=== PATIENT | female | born 1990 | race Caucasian/White ===

== ENCOUNTER 2018-02-04 00:29 | Inpatient (IN) | payer OTHER ==
[2018-02-04] MEDS ORDERED: Sodium Chloride 0.9% 2.5 ML Syringe FLUSH PRN (01:32)
[2018-02-04] MEDS ORDERED: Sodium Chloride 0.9% 10 ML Syringe FLUSH PRN (01:32)
[2018-02-04] MEDS ORDERED: ceFAZolin 2 GM in Premix Bag 1 BAG IV ONE (01:33)
[2018-02-04] MEDS ORDERED: Oxytocin/0.9 % Sodium Chloride 30 UNIT/500 ML BAG IV SCH (01:45)
[2018-02-04] MEDS ORDERED: Citric Acid/Sodium Citrate Solution 30 ML Cup PO SCH (01:45)
[2018-02-04] MEDS: Lactated Ringers 1,000 ML IV SCH ×2 (02:03→02:33)
[2018-02-04 03:05] LABS: CHLORIDE,CL 104 mmol/L (98-107); SODIUM,NA 136 mmol/L (136-145)
[2018-02-04] MEDS ORDERED: Morphine PF 1 MG/ML Amp ONE (03:27)
[2018-02-04] MEDS ORDERED: Lidocaine 1% 20 ML MDV ONE (03:38)
--- NOTE | 2018-02-04 04:27 | PCM.PREANE ---
Preanesthetic Assessment - Procedure Proposed Procedure: (#2) - Anesthesia/Transfusion/Family Hx Anesthesia History: Prior Anesthesia Without Reaction Family History of Anesthesia Reaction: No Transfusion History: No Prior Transfusion(s) Intubation History: Unknown Additional History: prior 9 yr ago in [place]....no problems but emergent - Review of Systems General: No Symptoms Pulmonary: No Symptoms Cardiovascular: No Symptoms Gastrointestinal: No Symptoms, Other (GERD) Neurological: Other (active labor) Other: Reports: None - Physical Assessment NPO Status Date: 02/03/18 NPO Status Time: 23:00 Height: 5 ft 4 in Weight: 229 lb ASA Class: 2E Mental Status: Alert & Oriented x3 Airway Class: Mallampati = 2 Dentition: Reports: Normal Dentition Thyro-Mental Finger Breadths: 3 Mouth Opening Finger Breadths: 3 ROM/Head Extension: Full Lungs: Clear to Auscultation, Normal Respiratory Effort Cardiovascular: Regular Rate, Regular Rhythm, No Murmurs - Lab Values: Laboratory Last Values WBC 11.21 K/uL (4.0-11.0) H 02/04/18 01:56 RBC 4.35 M/uL (4.30-5.90) 02/04/18 01:56 Hgb 12.9 g/dL (12.0-16.0) 02/04/18 01:56 Hct 37.3 % (36.0-46.0) 02/04/18 01:56 MCV 85.7 fL (80.0-98.0) 02/04/18 01:56 MCH 29.7 pg (27.0-32.0) 02/04/18 01:56 MCHC 34.6 g/dL (31.0-37.0) 02/04/18 01:56 RDW Std Deviation 40.4 fl (28.0-62.0) 02/04/18 01:56 RDW Coeff of Elijah 13 % (11.0-15.0) 02/04/18 01:56 Plt Count 254 K/uL (150-400) 02/04/18 01:56 MPV 11.60 fL (7.40-12.00) 02/04/18 01:56 Sodium 136 mmol/L (136-145) 02/04/18 01:56 Potassium 3.9 mmol/L (3.5-5.1) 02/04/18 01:56 Chloride 104 mmol/L (98-107) 02/04/18 01:56 Carbon Dioxide 25.0 mmol/L (21.0-32.0) 02/04/18 01:56 BUN 11 mg/dL (7.0-18.0) 02/04/18 01:56 Creatinine 0.7 mg/dL (0.6-1.0) 02/04/18 01:56 Est Cr Clr Drug Dosing 103.32 mL/min 02/04/18 01:56 Estimated GFR (MDRD) > 60.0 ml/min 02/04/18 01:56 Glucose 79 mg/dL (74-106) 02/04/18 01:56 Uric Acid 4.6 mg/dL (2.6-7.2) 02/04/18 01:56 Calcium 9.2 mg/dL (8.5-10.1) 02/04/18 01:56 Total Bilirubin 0.2 mg/dL (0.2-1.0) 02/04/18 01:56 AST 22 IU/L (15-37) 02/04/18 01:56 ALT 30 IU/L (14-63) 02/04/18 01:56 Alkaline Phosphatase 119 U/L (46-116) H 02/04/18 01:56 Total Protein 6.4 g/dL (6.4-8.2) 02/04/18 01:56 Albumin 2.5 g/dL (3.4-5.0) L 02/04/18 01:56 Globulin 3.9 g/dL (2.0-3.5) H 02/04/18 01:56 Albumin/Globulin Ratio 0.6 (1.3-2.8) L 02/04/18 01:56 Membrane Rupture POSITIVE 02/04/18 00:50 Blood Type O POSITIVE 02/04/18 01:56 Antibody Screen NEGATIVE 02/04/18 01:56 - Allergies Allergies/Adverse Reactions: Allergies Allergy/AdvReac Type Severity Reaction Status Date / Time No Known Allergies Allergy Verified 10/05/16 01:21 - Blood Blood Available: No Product(s) Available: None - Anesthesia Plan Pre-Op Medication Ordered: None - Acknowledgements Anesthesia Type Planned: Spinal Pt an Appropriate Candidate for the Planned Anesthesia: Yes Alternatives and Risks of Anesthesia Discussed w Pt/Guardian: Yes Pt/Guardian Understands and Agrees with Anesthesia Plan: Yes Additional Comments: wears glasses; urgent to OR for PreAnesthesia Questionnaire HEENT History: Reports: None Cardiovascular History: Reports: None Respiratory History: Reports: None Gastrointestinal History: Reports: None Genitourinary History: Reports: None SIZING END BANDER History: Reports: Musculoskeletal History: Reports: None Neurological History: Reports: None Psychiatric History: Reports: None Endocrine/Metabolic History: Reports: None Hematologic History: Reports: None Immunologic History: Reports: None Oncologic (Cancer) History: Reports: None Dermatologic History: Reports: None - Infectious Disease History Infectious Disease History: Reports: None - Past Surgical History HEENT Surgical History: Reports: Tonsillectomy Female Surgical History: Reports: Section - SUBSTANCE USE Smoking Status *Q: Never Smoker Second Hand Smoke Exposure: No Recreational Drug Use History: No - HOME MEDS Home Medications: Home Meds Vit #108/Iron/FA [ One Tablet] 1 each PO DAILY 02/04/18 [ History] - CURRENT (IN HOUSE) MEDS Current Meds: Current Medications Citric Acid/Sodium Citrate (Bicitra Solution) 30 ml PO .ONCE RICHARD Lactated Ringer's (Ringers, Lactated) 1,000 mls @ 500 mls/hr IV .BOLUS RICHARD Last Admin: 02/04/18 02:33 Dose: 999 mls/hr Oxytocin/Sodium Chloride (Oxytocin 30 Unit/500 Ml-Ns) 30 unit in 500 mls @ 250 mls/hr IV TITRATE RICHARD Sodium Chloride (Saline Flush) 10 ml FLUSH ASDIRECTED PRN PRN Reason: Keep Vein Open Sodium Chloride (Saline Flush) 2.5 ml FLUSH ASDIRECTED PRN PRN Reason: Keep Vein Open Discontinued Medications Cefazolin Sodium/Dextrose 2 gm (/ Premix) 50 mls @ 100 mls/hr IV ONETIME ONE Stop: 02/04/18 02:02 Lidocaine HCl (Xylocaine-Mpf 1%) Confirm Administered Dose 5 mls @ as directed .ROUTE .STK-MED ONE Stop: 02/04/18 03:39 Lidocaine HCl (Xylocaine 1%) Confirm Administered Dose 20 ml .ROUTE .STK-MED ONE Stop: 02/04/18 03:39 Morphine Sulfate (Duramorph Pf) Confirm Administered Dose 1 mg .ROUTE .[facility] ONE Stop: 02/04/18 03:28
[2018-02-04] MEDS ORDERED: ePHEDrine 50 MG/ML SDV ONE (04:31)
[2018-02-04] MEDS ORDERED: Oxytocin 10 Units/1 ML SDV ONE ×3 (04:32→04:33)
[2018-02-04] MEDS ORDERED: Naloxone 0.4 MG/ML Syringe IVPUSH PRN (05:23)
[2018-02-04] MEDS ORDERED: Nalbuphine 10 MG/1 ML Vial IVPUSH PRN (05:23)
[2018-02-04] MEDS ORDERED: Lanolin 100% Cream 7 GM Tube TOP PRN (05:35)
[2018-02-04] MEDS ORDERED: Bisacodyl 10 MG Supp RECTAL PRN (05:35)
[2018-02-04] MEDS ORDERED: Acetaminophen/oxyCODONE 325-5 MG Tab PO PRN ×2 (05:35)
[2018-02-04] MEDS ORDERED: Ondansetron 4 MG/2 ML SDV IV PRN (05:35)
[2018-02-04] MEDS ORDERED: diphenhydrAMINE 50 MG/ML SDV IVPUSH PRN (05:35)
[2018-02-04] MEDS ORDERED: Ibuprofen 800 MG Tab PO PRN (05:35)
--- NOTE | 2018-02-04 05:43 | PCM.OPNOTE ---
- General Post-Op/Procedure Note Date of Surgery/Procedure: 02/04/18 Operative Procedure(s): Repeat Lower transverse Findings: Live male delivered at 4.16am , 9/9 Weight: 3300g, 3VC Dense adhesions noted between omentum and fascia Uterus repaired in 1 layer with 0 vicryl Peritoneum approximated with 2.0 vicryl Fascia closed with 0 vicryl Subcutaneous fat closed with 2.0 vicryl Skin closed with 4.0 monocryl on klaudia needle Pre Op Diagnosis: 27 yo @ 38w2d , SROM , previous Post-Op Diagnosis: same Anesthesia Technique: Spinal Primary Surgeon: Ronaldo Mitchell Anesthesia Provider: Mathieu Wilson Pathology: None Fluid Replacement, Intraop: 2,000 Output, Urine Amount: 400 EBL in mLs: 500 Complications: None Condition: Good Free Text/Narrative:: Intake & Output 02/03/18 02/03/18 02/04/18 14:59 22:59 06:59 Output Total 400 Balance -400
[2018-02-04] MEDS ORDERED: Ketorolac 30 MG/ML SDV ONE (05:44)
[2018-02-04] MEDS ORDERED: Lactated Ringers 1,000 ML IV SCH (05:45)
[2018-02-04] MEDS: Ketorolac 30 MG/ML SDV IVPUSH SCH ×3 (05:46→19:25)
--- NOTE | 2018-02-04 07:02 | PCM.POSTAN ---
POST ANESTHESIA ASSESSMENT - MENTAL STATUS Mental Status: Alert, Oriented - RESPIRATORY Respiratory Status: Respiratory Rate WNL, Airway Patent, O2 Saturation Stable - CARDIOVASCULAR CV Status: Pulse Rate WNL, Blood Pressure Stable - GASTROINTESTINAL GI Status: No Symptoms - PAIN Pain Score: 0 (spinal effect) - POST OP HYDRATION Hydration Status: Adequate & Stable - OBSERVATIONS Free Text/Narrative:: to phase II.
--- NOTE | 2018-02-04 07:11 | OR ---
SURGEON: MECCA VASQUES PREOPERATIVE DIAGNOSES: A 27-year-old G3, P1-0-1-1 at 38 weeks and 2 days in spontaneous rupture of membrane and previous section, desiring repeat POSTOPERATIVE DIAGNOSES: A 27-year-old G3, P1-0-1-1 at 38 weeks and 2 days in spontaneous rupture of membrane and previous section, desiring repeat csection PROCEDURE PERFORMED: Repeat lower transverse section. ESTIMATED BLOOD LOSS: 500. INTRAVENOUS FLUIDS: 2000. URINE OUTPUT: 400. NOTES AND FINDINGS: A live male delivered at 4:16 a.m. scores were 9 and 9. Weight 3300g. There were some dense omental adhesions to the anterior fascia which was released BRIEF HISTORY ABOUT THE PATIENT: She is a 27-year-old G3, P1-0-1-1 at 38 weeks and 2 days, who came in complaining of leakage of fluid and contraction. When she came in, she was noted to be ruptured. She was 1 cm dilated. As a result, the patient was consented for the section because she desired a repeat . She was explained risk , benefits and alternative and signed consent DESCRIPTION OF PROCEDURE: The patient was taken to the operating room, where spinal anesthesia was done without difficulty. The patient was prepared and draped in a dorsal supine position with a leftward tilt. A Pfannenstiel skin incision was placed on the previous scar with a scalpel. The incision was carried down to the fascia with the Bovie. The fascia was incised and extended laterally. The fascia was then dissected off the rectus muscles superiorly and inferiorly. The rectus muscles were in the midline down to the level of the pubic symphysis. The peritoneum was then grasped with a hemostat, and entered in with the help of Metzebaum scissors. The peritoneum was then extended manually to the bladder reflection to expose the bladder.The Aníbal retractor placed to expose the lower uterine segment. The bladder flap was created with the Metzenbaum scissors, and the uterine incision was then made with elevation of the uterine wall with the Allis clamp. The infant was in cephalic position. The was elevated to the level of the incision with fundal pressure. The head was delivered, followed subsequently by the shoulder and the body. The cord was clamped and cut. The infant was handed over to the awaiting billing spec. The placenta was then delivered by fundal massage, and the uterus was then cleaned with laparotomy sponges.The incision was closed in one layer with 0 Vicryl in a continuous locking fashion. The incision was inspected and found to be hemostatic. The gutters were cleaned. There were normal tubes and ovaries visualized. Attention was then paid to the peritoneum, which was closed with 2-0 Vicryl. The rectus muscle and fascia was inspected and Hemostasis was noted. The two interrupted stitches were placed on the rectus muscle. The fascia was then closed with 0 Vicryl in a continuous fashion. The subcutaneous fat was closed also with 2-0 Vicryl, and the skin was closed with 4-0 Monocryl on a Terry needle.All instrument and pad counts were correct x2. The patient was taken to the recovery room in stable condition. MALATHI AREVALO /[id number]
[2018-02-04] MEDS: Docusate Sodium 100 MG Cap PO SCH ×2 (13:36→20:14)
[2018-02-04] MEDS: Nalbuphine 10 MG/ML 10 ML MDV IM PRN ×2 (14:21→20:14)
[2018-02-05] MEDS: Ketorolac 30 MG/ML SDV IVPUSH SCH ×2 (01:15→06:32)
--- NOTE | 2018-02-05 08:14 | PCM.PNPP ---
<Charley Arizmendi - Last Filed: 02/05/18 08:08> - General Info Date of Service: 02/05/18 Functional Status: Reports: Pain Controlled, Tolerating Diet, Ambulating, Urinating - Review of Systems General: Denies: Fever, Weakness, Fatigue Pulmonary: Denies: Shortness of Breath, Pleuritic Chest Pain, Cough Cardiovascular: Denies: Chest Pain, Palpitations, Dyspnea on Exertion Gastrointestinal: Denies: Abdominal Pain Genitourinary: Denies: Dysuria - General Info Date of Service: 02/05/18 - Patient Data Vital Signs - Most Recent: Last Vital Signs Temp 36.2 C 02/05/18 07:46 Pulse 63 02/05/18 07:46 Resp 20 02/05/18 07:46 BP 111/57 L 02/05/18 07:46 Pulse Ox 96 02/05/18 07:46 Weight - Most Recent: 103.873 kg I&O - Last 24 Hours: Intake & Output 02/04/18 02/05/18 02/05/18 22:59 06:59 14:59 Intake Total 600 Output Total 1150 Balance -550 Lab Results - Last 24 Hours: Laboratory Results - last 24 hr 02/05/18 Range/Units 04:40 Hgb 11.3 L (12.0-16.0) g/dL Hct 33.2 L (36.0-46.0) % Med Orders - Current: Current Medications Bisacodyl (Dulcolax) 10 mg RECTAL .ONCE PRN PRN Reason: Constipation Citric Acid/Sodium Citrate (Bicitra Solution) 30 ml PO .ONCE RICHARD Diphenhydramine HCl (Benadryl) 25 mg IVPUSH Q6H PRN PRN Reason: Itching or Nausea Last Admin: 02/04/18 06:18 Dose: 25 mg Docusate Sodium (Colace) 100 mg PO BID RICHARD Last Admin: 02/04/18 20:14 Dose: 100 mg Emollient Ointment (Lansinoh Hpa) 0 gm TOP ASDIRECTED PRN PRN Reason: Sore Nipples Lactated Ringer's (Ringers, Lactated) 1,000 mls @ 500 mls/hr IV .BOLUS RICHARD Last Admin: 02/04/18 02:33 Dose: 999 mls/hr Oxytocin/Sodium Chloride (Oxytocin 30 Unit/500 Ml-Ns) 30 unit in 500 mls @ 250 mls/hr IV TITRATE [facility] Lactated Ringer's (Ringers, Lactated) 1,000 mls @ 125 mls/hr IV ASDIRECTED [facility] Last Admin: 02/04/18 06:18 Dose: 125 mls/hr Ibuprofen (Motrin) 800 mg PO Q8H PRN PRN Reason: mild pain or fever Nalbuphine HCl (Nubain) 5 mg IM Q3H PRN PRN Reason: Itching Last Admin: 02/04/18 20:14 Dose: 5 mg Ondansetron HCl (Zofran) 4 mg IV Q4H PRN PRN Reason: Nausea/Vomiting Last Admin: 02/04/18 13:36 Dose: 4 mg Oxycodone/Acetaminophen (Percocet 325-5 Mg) 1 tab PO Q4H PRN PRN Reason: Abdominal Pain Oxycodone/Acetaminophen (Percocet 325-5 Mg) 1 tab PO Q4H PRN PRN Reason: Pain (moderate 4-6) Oxycodone/Acetaminophen (Percocet 325-5 Mg) 2 tab PO Q4H PRN PRN Reason: Pain (moderate 4-6) Sodium Chloride (Saline Flush) 10 ml FLUSH ASDIRECTED PRN PRN Reason: Keep Vein Open Sodium Chloride (Saline Flush) 2.5 ml FLUSH ASDIRECTED PRN PRN Reason: Keep Vein Open Discontinued Medications Ephedrine Sulfate (Ephedrine Sulfate) Confirm Administered Dose 50 mg .ROUTE .STK-MED ONE Stop: 02/04/18 04:32 Cefazolin Sodium/Dextrose 2 gm (/ Premix) 50 mls @ 100 mls/hr IV ONETIME ONE Stop: 02/04/18 02:02 Last Admin: 02/04/18 07:36 Dose: Not Given Lidocaine HCl (Xylocaine-Mpf 1%) Confirm Administered Dose 5 mls @ as directed .ROUTE .STK-MED ONE Stop: 02/04/18 03:39 Ibuprofen (Motrin) 800 mg PO Q8H PRN PRN Reason: mild pain or fever Ketorolac Tromethamine (Toradol) 30 mg IVPUSH Q6H [facility] Stop: 02/05/18 05:46 Last Admin: 02/05/18 06:32 Dose: 30 mg Ketorolac Tromethamine (Toradol) Confirm Administered Dose 30 mg .ROUTE .STK- MED ONE Stop: 02/04/18 05:45 Last Admin: 02/04/18 07:35 Dose: Not Given Lidocaine HCl (Xylocaine 1%) Confirm Administered Dose 20 ml .ROUTE .STK-MED ONE Stop: 02/04/18 03:39 Morphine Sulfate (Duramorph Pf) Confirm Administered Dose 1 mg .ROUTE .STK-MED ONE Stop: 02/04/18 03:28 Nalbuphine HCl (Nubain) 5 mg IVPUSH Q3H PRN PRN Reason: Pruritis Stop: 02/05/18 05:24 Naloxone HCl (Narcan) 0.1 mg IVPUSH ONETIME PRN PRN Reason: Respiratory Depression Stop: 02/05/18 05:23 Oxytocin (Pitocin) Confirm Administered Dose 10 unit .ROUTE .STK-MED ONE Stop: 02/04/18 04:33 Oxytocin (Pitocin) Confirm Administered Dose 10 unit .ROUTE .STK-MED ONE Stop: 02/04/18 04:34 Oxytocin (Pitocin) Confirm Administered Dose 10 unit .ROUTE .STK-MED ONE Stop: 02/04/18 04:34 - Infant Interaction Infant Disposition, : [place] in Room with Family Interaction: Holding Feeding: Attempted ; Nursed Fair/Poor Support Person: - Recovery Exam Fundal Tone: Firm Fundal Level: 1 Fingerbreadths Below Umbilicus Fundal Placement: Midline Lochia Amount: Scant Lochia Color: Rubra/Red Perineum Description: Intact, Minimal Bruising/Swelling Episiotomy/Laceration: None Bladder Status: Voiding Urinary Elimination: Voided - Exam General: Alert Neck: Supple Lungs: Clear to Auscultation, Normal Respiratory Effort Cardiovascular: Regular Rate GI/Abdominal Exam: Normal Bowel Sounds, Soft, No Organomegaly, No Distention Extremities: Normal Inspection Skin: Warm, Dry, Intact - Problem List Review Problem List Initiated/Reviewed/Updated: Yes - Assessment Assessment:: POD#1 s/p RLTCS. Minimal pain and lochia. Ambulate halls and can shower today. Anticipate discharge home tomorrow. - Plan Plan:: Continue routine post-op cares. <Mali Light - Last Filed: 02/06/18 17:50> - Patient Data Vital Signs - Most Recent: Last Vital Signs Temp 36.1 C 02/06/18 07:30 Pulse 73 02/06/18 07:30 Resp 18 02/06/18 07:30 BP 116/67 02/06/18 07:30 Pulse Ox 96 02/06/18 07:30 Med Orders - Current: Current Medications Bisacodyl (Dulcolax) 10 mg RECTAL .ONCE PRN PRN Reason: Constipation Citric Acid/Sodium Citrate (Bicitra Solution) 30 ml PO .ONCE RICHARD Diphenhydramine HCl (Benadryl) 25 mg IVPUSH Q6H PRN PRN Reason: Itching or Nausea Last Admin: 02/04/18 06:18 Dose: 25 mg Docusate Sodium (Colace) 100 mg PO BID RICHARD Last Admin: 02/06/18 07:46 Dose: 100 mg Emollient Ointment (Lansinoh Hpa) 0 gm TOP ASDIRECTED PRN PRN Reason: Sore Nipples Lactated Ringer's (Ringers, Lactated) 1,000 mls @ 500 mls/hr IV .BOLUS [facility] Last Admin: 02/04/18 02:33 Dose: 999 mls/hr Oxytocin/Sodium Chloride (Oxytocin 30 Unit/500 Ml-Ns) 30 unit in 500 mls @ 250 mls/hr IV TITRATE RICHARD Lactated Ringer's (Ringers, Lactated) 1,000 mls @ 125 mls/hr IV ASDIRECTED [facility] Last Admin: 02/04/18 06:18 Dose: 125 mls/hr Ibuprofen (Motrin) 800 mg PO Q8H PRN PRN Reason: mild pain or fever Last Admin: 02/06/18 10:24 Dose: 800 mg Nalbuphine HCl (Nubain) 5 mg IM Q3H PRN PRN Reason: Itching Last Admin: 02/04/18 20:14 Dose: 5 mg Ondansetron HCl (Zofran) 4 mg IV Q4H PRN PRN Reason: Nausea/Vomiting Last Admin: 02/04/18 13:36 Dose: 4 mg Oxycodone/Acetaminophen (Percocet 325-5 Mg) 1 tab PO Q4H PRN PRN Reason: Abdominal Pain Last Admin: 02/06/18 13:32 Dose: 1 tab Oxycodone/Acetaminophen (Percocet 325-5 Mg) 1 tab PO Q4H PRN PRN Reason: Pain (moderate 4-6) Last Admin: 02/05/18 23:07 Dose: 1 tab Oxycodone/Acetaminophen (Percocet 325-5 Mg) 2 tab PO Q4H PRN PRN Reason: Pain (moderate 4-6) Last Admin: 02/05/18 19:19 Dose: 2 tab Sodium Chloride (Saline Flush) 10 ml FLUSH ASDIRECTED PRN PRN Reason: Keep Vein Open Sodium Chloride (Saline Flush) 2.5 ml FLUSH ASDIRECTED PRN PRN Reason: Keep Vein Open Discontinued Medications Ephedrine Sulfate (Ephedrine Sulfate) Confirm Administered Dose 50 mg .ROUTE .STK-MED ONE Stop: 02/04/18 04:32 Cefazolin Sodium/Dextrose 2 gm (/ Premix) 50 mls @ 100 mls/hr IV ONETIME ONE Stop: 02/04/18 02:02 Last Admin: 02/04/18 07:36 Dose: Not Given Lidocaine HCl (Xylocaine-Mpf 1%) Confirm Administered Dose 5 mls @ as directed .ROUTE .STK-MED ONE Stop: 02/04/18 03:39 Ibuprofen (Motrin) 800 mg PO Q8H PRN PRN Reason: mild pain or fever Ketorolac Tromethamine (Toradol) 30 mg IVPUSH Q6H RICHARD Stop: 02/05/18 05:46 Last Admin: 02/05/18 06:32 Dose: 30 mg Ketorolac Tromethamine (Toradol) Confirm Administered Dose 30 mg .ROUTE .STK- MED ONE Stop: 02/04/18 05:45 Last Admin: 02/04/18 07:35 Dose: Not Given Lidocaine HCl (Xylocaine 1%) Confirm Administered Dose 20 ml .ROUTE .STK-MED ONE Stop: 02/04/18 03:39 Morphine Sulfate (Duramorph Pf) Confirm Administered Dose 1 mg .ROUTE .STK-MED ONE Stop: 02/04/18 03:28 Nalbuphine HCl (Nubain) 5 mg IVPUSH Q3H PRN PRN Reason: Pruritis Stop: 02/05/18 05:24 Naloxone HCl (Narcan) 0.1 mg IVPUSH ONETIME PRN PRN Reason: Respiratory Depression Stop: 02/05/18 05:23 Oxytocin (Pitocin) Confirm Administered Dose 10 unit .ROUTE .STK-MED ONE Stop: 02/04/18 04:33 Oxytocin (Pitocin) Confirm Administered Dose 10 unit .ROUTE .STK-MED ONE Stop: 02/04/18 04:34 Oxytocin (Pitocin) Confirm Administered Dose 10 unit .ROUTE .STK-MED ONE Stop: 02/04/18 04:34 - Problem List Review Problem List Initiated/Reviewed/Updated: Yes - Assessment Assessment:: Patient was seen and examined by me on this date of service and I agree with above.
[2018-02-05] MEDS: Docusate Sodium 100 MG Cap PO SCH ×2 (09:11→21:11)
--- NOTE | 2018-02-05 09:32 | PCM48HPAN ---
Post Anesthesia Note - EVALUATION WITHIN 48HRS OF ANESTHETIC Vital Signs in Normal Range: Yes Patient Participated in Evaluation: Yes Respiratory Function Stable: Yes Airway Patent: Yes Cardiovascular Function Stable: Yes Hydration Status Stable: Yes Pain Control Satisfactory: Yes Nausea and Vomiting Control Satisfactory: Yes Mental Status Recovered: Yes Resp Rate: 20
[2018-02-05] MEDS: Ibuprofen 800 MG Tab PO PRN (16:43)
[2018-02-06] MEDS: Ibuprofen 800 MG Tab PO PRN ×2 (00:38→10:24)
[2018-02-06] MEDS: Acetaminophen/oxyCODONE 325-5 MG Tab PO PRN ×2 (07:44→13:32)
[2018-02-06] MEDS: Docusate Sodium 100 MG Cap PO SCH (07:46)
--- NOTE | 2018-02-06 15:49 | PCM.PNPP ---
<Charley Arizmendi - Last Filed: 02/06/18 15:45> - General Info Date of Service: 02/06/18 Functional Status: Reports: Pain Controlled, Tolerating Diet, Ambulating, Urinating - Review of Systems General: Denies: Fever, Weakness Pulmonary: Denies: Shortness of Breath, Pleuritic Chest Pain, Cough Cardiovascular: Denies: Chest Pain, Palpitations, Dyspnea on Exertion Gastrointestinal: Denies: Abdominal Pain - General Info Date of Service: 02/06/18 - Patient Data Vital Signs - Most Recent: Last Vital Signs Temp 36.1 C 02/06/18 07:30 Pulse 73 02/06/18 07:30 Resp 18 02/06/18 07:30 BP 116/67 02/06/18 07:30 Pulse Ox 96 02/06/18 07:30 Weight - Most Recent: 103.873 kg Med Orders - Current: Current Medications Bisacodyl (Dulcolax) 10 mg RECTAL .ONCE PRN PRN Reason: Constipation Citric Acid/Sodium Citrate (Bicitra Solution) 30 ml PO .ONCE RICHARD Diphenhydramine HCl (Benadryl) 25 mg IVPUSH Q6H PRN PRN Reason: Itching or Nausea Last Admin: 02/04/18 06:18 Dose: 25 mg Docusate Sodium (Colace) 100 mg PO BID [facility] Last Admin: 02/06/18 07:46 Dose: 100 mg Emollient Ointment (Lansinoh Hpa) 0 gm TOP ASDIRECTED PRN PRN Reason: Sore Nipples Lactated Ringer's (Ringers, Lactated) 1,000 mls @ 500 mls/hr IV .BOLUS [facility] Last Admin: 02/04/18 02:33 Dose: 999 mls/hr Oxytocin/Sodium Chloride (Oxytocin 30 Unit/500 Ml-Ns) 30 unit in 500 mls @ 250 mls/hr IV TITRATE RICHARD Lactated Ringer's (Ringers, Lactated) 1,000 mls @ 125 mls/hr IV ASDIRECTED [facility] Last Admin: 02/04/18 06:18 Dose: 125 mls/hr Ibuprofen (Motrin) 800 mg PO Q8H PRN PRN Reason: mild pain or fever Last Admin: 02/06/18 10:24 Dose: 800 mg Nalbuphine HCl (Nubain) 5 mg IM Q3H PRN PRN Reason: Itching Last Admin: 02/04/18 20:14 Dose: 5 mg Ondansetron HCl (Zofran) 4 mg IV Q4H PRN PRN Reason: Nausea/Vomiting Last Admin: 02/04/18 13:36 Dose: 4 mg Oxycodone/Acetaminophen (Percocet 325-5 Mg) 1 tab PO Q4H PRN PRN Reason: Abdominal Pain Last Admin: 02/06/18 13:32 Dose: 1 tab Oxycodone/Acetaminophen (Percocet 325-5 Mg) 1 tab PO Q4H PRN PRN Reason: Pain (moderate 4-6) Last Admin: 02/05/18 23:07 Dose: 1 tab Oxycodone/Acetaminophen (Percocet 325-5 Mg) 2 tab PO Q4H PRN PRN Reason: Pain (moderate 4-6) Last Admin: 02/05/18 19:19 Dose: 2 tab Sodium Chloride (Saline Flush) 10 ml FLUSH ASDIRECTED PRN PRN Reason: Keep Vein Open Sodium Chloride (Saline Flush) 2.5 ml FLUSH ASDIRECTED PRN PRN Reason: Keep Vein Open Discontinued Medications Ephedrine Sulfate (Ephedrine Sulfate) Confirm Administered Dose 50 mg .ROUTE .STK-MED ONE Stop: 02/04/18 04:32 Cefazolin Sodium/Dextrose 2 gm (/ Premix) 50 mls @ 100 mls/hr IV ONETIME ONE Stop: 02/04/18 02:02 Last Admin: 02/04/18 07:36 Dose: Not Given Lidocaine HCl (Xylocaine-Mpf 1%) Confirm Administered Dose 5 mls @ as directed .ROUTE .STK-MED ONE Stop: 02/04/18 03:39 Ibuprofen (Motrin) 800 mg PO Q8H PRN PRN Reason: mild pain or fever Ketorolac Tromethamine (Toradol) 30 mg IVPUSH Q6H RICHARD Stop: 02/05/18 05:46 Last Admin: 02/05/18 06:32 Dose: 30 mg Ketorolac Tromethamine (Toradol) Confirm Administered Dose 30 mg .ROUTE .STK- MED ONE Stop: 02/04/18 05:45 Last Admin: 02/04/18 07:35 Dose: Not Given Lidocaine HCl (Xylocaine 1%) Confirm Administered Dose 20 ml .ROUTE .STK-MED ONE Stop: 02/04/18 03:39 Morphine Sulfate (Duramorph Pf) Confirm Administered Dose 1 mg .ROUTE .STK-MED ONE Stop: 02/04/18 03:28 Nalbuphine HCl (Nubain) 5 mg IVPUSH Q3H PRN PRN Reason: Pruritis Stop: 02/05/18 05:24 Naloxone HCl (Narcan) 0.1 mg IVPUSH ONETIME PRN PRN Reason: Respiratory Depression Stop: 02/05/18 05:23 Oxytocin (Pitocin) Confirm Administered Dose 10 unit .ROUTE .STK-MED ONE Stop: 02/04/18 04:33 Oxytocin (Pitocin) Confirm Administered Dose 10 unit .ROUTE .STK-MED ONE Stop: 02/04/18 04:34 Oxytocin (Pitocin) Confirm Administered Dose 10 unit .ROUTE .STK-MED ONE Stop: 02/04/18 04:34 - Infant Interaction Disposition, : [place] in Room with Family Infant Interaction: Holding Infant Infant Feeding: Attempted ; Nursed Fair/Poor Support Person: - Recovery Exam Fundal Tone: Firm Fundal Level: At Umbilicus Fundal Placement: Midline Lochia Amount: Scant Lochia Color: Rubra/Red Perineum Description: Intact, Minimal Bruising/Swelling Episiotomy/Laceration: None Bladder Status: Voiding Urinary Elimination: Voided - Exam Neck: Supple Lungs: Clear to Auscultation Cardiovascular: Regular Rate, Regular Rhythm GI/Abdominal Exam: Normal Bowel Sounds, Soft, Non-Tender, No Organomegaly, No Distention, No Abnormal Bruit, No Mass, Pelvis Stable Extremities: Normal Inspection, Pedal Edema (trace) Skin: Warm, Dry, Intact - My Orders Last 24 Hours: My Active Orders 02/06/18 08:06 Ready for Discharge [RC] PER UNIT ROUTINE - Assessment Assessment:: POD#2 s/p RLTCS. Minimal pain and lochia. Discharge home today. - Plan Plan:: Discharge instructions reviewed. Pelvic rest for 6 weeks. Rx for Percocet to use as needed for pain. No lifting greater than 10 lbs. Instructed patient to call if she develops fever greater than 101 or bleeding through a large pad an hour. F/U with [facility] in 2 and 6 weeks. <Mali Light - Last Filed: 02/06/18 17:52> - Patient Data Vital Signs - Most Recent: Last Vital Signs Temp 36.1 C 02/06/18 07:30 Pulse 73 02/06/18 07:30 Resp 18 02/06/18 07:30 BP 116/67 02/06/18 07:30 Pulse Ox 96 02/06/18 07:30 Med Orders - Current: Current Medications Bisacodyl (Dulcolax) 10 mg RECTAL .ONCE PRN PRN Reason: Constipation Citric Acid/Sodium Citrate (Bicitra Solution) 30 ml PO .ONCE RICHARD Diphenhydramine HCl (Benadryl) 25 mg IVPUSH Q6H PRN PRN Reason: Itching or Nausea Last Admin: 02/04/18 06:18 Dose: 25 mg Docusate Sodium (Colace) 100 mg PO BID [facility] Last Admin: 02/06/18 07:46 Dose: 100 mg Emollient Ointment (Lansinoh Hpa) 0 gm TOP ASDIRECTED PRN PRN Reason: Sore Nipples Lactated Ringer's (Ringers, Lactated) 1,000 mls @ 500 mls/hr IV .BOLUS [facility] Last Admin: 02/04/18 02:33 Dose: 999 mls/hr Oxytocin/Sodium Chloride (Oxytocin 30 Unit/500 Ml-Ns) 30 unit in 500 mls @ 250 mls/hr IV TITRATE RICHARD Lactated Ringer's (Ringers, Lactated) 1,000 mls @ 125 mls/hr IV ASDIRECTED [facility] Last Admin: 02/04/18 06:18 Dose: 125 mls/hr Ibuprofen (Motrin) 800 mg PO Q8H PRN PRN Reason: mild pain or fever Last Admin: 02/06/18 10:24 Dose: 800 mg Nalbuphine HCl (Nubain) 5 mg IM Q3H PRN PRN Reason: Itching Last Admin: 02/04/18 20:14 Dose: 5 mg Ondansetron HCl (Zofran) 4 mg IV Q4H PRN PRN Reason: Nausea/Vomiting Last Admin: 02/04/18 13:36 Dose: 4 mg Oxycodone/Acetaminophen (Percocet 325-5 Mg) 1 tab PO Q4H PRN PRN Reason: Abdominal Pain Last Admin: 02/06/18 13:32 Dose: 1 tab Oxycodone/Acetaminophen (Percocet 325-5 Mg) 1 tab PO Q4H PRN PRN Reason: Pain (moderate 4-6) Last Admin: 02/05/18 23:07 Dose: 1 tab Oxycodone/Acetaminophen (Percocet 325-5 Mg) 2 tab PO Q4H PRN PRN Reason: Pain (moderate 4-6) Last Admin: 02/05/18 19:19 Dose: 2 tab Sodium Chloride (Saline Flush) 10 ml FLUSH ASDIRECTED PRN PRN Reason: Keep Vein Open Sodium Chloride (Saline Flush) 2.5 ml FLUSH ASDIRECTED PRN PRN Reason: Keep Vein Open Discontinued Medications Ephedrine Sulfate (Ephedrine Sulfate) Confirm Administered Dose 50 mg .ROUTE .STK-MED ONE Stop: 02/04/18 04:32 Cefazolin Sodium/Dextrose 2 gm (/ Premix) 50 mls @ 100 mls/hr IV ONETIME ONE Stop: 02/04/18 02:02 Last Admin: 02/04/18 07:36 Dose: Not Given Lidocaine HCl (Xylocaine-Mpf 1%) Confirm Administered Dose 5 mls @ as directed .ROUTE .STK-MED ONE Stop: 02/04/18 03:39 Ibuprofen (Motrin) 800 mg PO Q8H PRN PRN Reason: mild pain or fever Ketorolac Tromethamine (Toradol) 30 mg IVPUSH Q6H RICHARD Stop: 02/05/18 05:46 Last Admin: 02/05/18 06:32 Dose: 30 mg Ketorolac Tromethamine (Toradol) Confirm Administered Dose 30 mg .ROUTE .STK- MED ONE Stop: 02/04/18 05:45 Last Admin: 02/04/18 07:35 Dose: Not Given Lidocaine HCl (Xylocaine 1%) Confirm Administered Dose 20 ml .ROUTE .STK-MED ONE Stop: 02/04/18 03:39 Morphine Sulfate (Duramorph Pf) Confirm Administered Dose 1 mg .ROUTE .STK-MED ONE Stop: 02/04/18 03:28 Nalbuphine HCl (Nubain) 5 mg IVPUSH Q3H PRN PRN Reason: Pruritis Stop: 02/05/18 05:24 Naloxone HCl (Narcan) 0.1 mg IVPUSH ONETIME PRN PRN Reason: Respiratory Depression Stop: 02/05/18 05:23 Oxytocin (Pitocin) Confirm Administered Dose 10 unit .ROUTE .STK-MED ONE Stop: 02/04/18 04:33 Oxytocin (Pitocin) Confirm Administered Dose 10 unit .ROUTE .STK-MED ONE Stop: 02/04/18 04:34 Oxytocin (Pitocin) Confirm Administered Dose 10 unit .ROUTE .STK-MED ONE Stop: 02/04/18 04:34 - Problem List Review Problem List Initiated/Reviewed/Updated: Yes - Assessment Assessment:: Patient was seen and examined by me on day of discharge and I agree with above. Discharge instructions were reviewed by me with patient.
[2018-02-06 18:38] VITALS: BP 126/79
== END 2018-02-06 15:25 | disposition home or self-care (01) | DRG 766 ==
LOC: MW.OBCHECK 00:29 → MW.OB 00:33 → MW.OBCHECK 01:32 → MW.OB 01:32
PROVIDERS: ADMIT Obstetrics & Gynecology; ATTEND Obstetrics & Gynecology
PROC: 10D00Z1 Extraction of Products of Conception, Low, Open Approach (ICD-10-PCS; principal; 2018-02-04)
DX: O42.02 Full-term premature rupture of membranes, onset of labor within 24 hours of rupture (principal); Z3A.38 38 weeks gestation of pregnancy; Z37.0 Single live birth
CPT/HCPCS: 36415; 59025; 80053; 84112; 84550; 85014; 85018; 85027; 86850; 86900; 86901; A9270-GY; J1200; J1885; J2274; J2300; J2405; J2590; J7120